=== PATIENT | male | born 1965 | race Caucasian/White ===

== ENCOUNTER → 2024-01-11 15:41 | Outpatient (REF) | payer BC, SELFPAY | LOC: MRI 3T 15:41 | PROVIDERS: ATTENDING PHYSICIAN Surgery; FAMILY PHYSICIAN Nurse Practitioner | DX: R97.20 Elevated prostate specific antigen [PSA] (principal) | CPT/HCPCS: 72197; A9575 ==

== ENCOUNTER → 2024-09-20 10:50 | Outpatient (REF) | payer BC, SELFPAY ==
[2024-09-20 13:07] LABS: PSA, Total - Diagnostic < 0.06 ng/ml (0.0-4.0)
== END ==
LOC: REG 10:50
PROVIDERS: ATTENDING PHYSICIAN Surgery; FAMILY PHYSICIAN Nurse Practitioner
DX: C61 Malignant neoplasm of prostate (principal)
CPT/HCPCS: 36415; 84153

== ENCOUNTER → 2024-10-17 10:06 | Outpatient (REF) | payer BC, SELFPAY ==
[2024-10-17 11:04] LABS: % Basophils 0.3 % (0-2); % Eosinophils 0.9 % (0-6); % Immature Granulocytes 0.2 % (0-0.5); % Lymphocytes 37.5 % (20.5-51.1); % Monocytes 7.7 % (1.7-9.3); % Neutrophils 53.4 % (42.2-75.2); Absolute Eosinophils 0.1 10^3/uL (0-0.7); Absolute Lymphocytes 2.2 10^3/uL (1.2-3.4); Absolute Monocytes 0.4 10^3/uL (0.1-0.6); Absolute Neutrophils 3.1 10^3/uL (1.4-6.5); Hematocrit 46.5 % (39.0-52.0); Hemoglobin 16.4 g/dL (13.0-18.0); Mean Corp Hgb Conc. 35.3 g/dL (33.0-37.0); Mean Corpuscular Hgb 31.5 pg (27.0-31.0); Mean Corpuscular Volume 89.4 fL (80.0-94.0); Mean Platelet Volume 10.5 fL (7.4-10.4); Nucleated Red Blood Cells % 0 % (-); Platelet Count 212 10^3/uL (130-400); Red Cell Dist. Width 12.4 % (11.5-14.5); White Blood Cell Count 5.7 10^3/uL (4.8-10.8)
[2024-10-17 12:03] LABS: Blood Urea Nitrogen 23 mg/dl (9-20); Calcium 9.4 mg/dl (8.4-10.2); Carbon Dioxide 26 mmol/L (22-30); Chloride 111 mmol/L (98-107); Glucose 106 mg/dl (70-99); Potassium 4.2 mmol/L (3.5-5.1); Sodium 143 mmol/L (135-145); eGFR > 60.00
== END ==
LOC: REG 10:06
PROVIDERS: ATTENDING PHYSICIAN Specialist; FAMILY PHYSICIAN Nurse Practitioner
DX: Z01.818 Encounter for other preprocedural examination (principal)
CPT/HCPCS: 80048; 85025; 93005

== ENCOUNTER 2024-10-21 15:09 | Outpatient (RCR) | payer BC, SELFPAY | END 2024-10-21 23:59 | disposition home or self-care (01) | LOC: RPT 15:09 | PROVIDERS: ATTENDING PHYSICIAN Surgery; FAMILY PHYSICIAN Nurse Practitioner | DX: N39.3 Stress incontinence (female) (male) (principal); Z73.6 Limitation of activities due to disability; C61 Malignant neoplasm of prostate; Z98.890 Other specified postprocedural states; Z90.79 Acquired absence of other genital organ(s) | CPT/HCPCS: 97110; 97112; 97161; 97530 ==

== ENCOUNTER → 2024-12-17 14:42 | Outpatient (REF) | payer BC, SELFPAY | LOC: RAD 14:42 | PROVIDERS: ATTENDING PHYSICIAN Specialist; FAMILY PHYSICIAN Nurse Practitioner | DX: Z96.652 Presence of left artificial knee joint (principal); M79.662 Pain in left lower leg | CPT/HCPCS: 93971 ==

== ENCOUNTER → 2024-12-19 07:30 | Outpatient (REF) | payer BC, SELFPAY ==
[2024-12-19 09:05] LABS: PSA, Total - Diagnostic < 0.06 ng/ml (0.0-4.0)
== END ==
LOC: REG 07:30
PROVIDERS: ATTENDING PHYSICIAN Surgery
DX: C61 Malignant neoplasm of prostate (principal)
CPT/HCPCS: 36415; 84153

== ENCOUNTER → 2024-12-31 12:19 | Outpatient (REF) | payer BC, SELFPAY ==
[2024-12-31 13:00] LABS: Hematocrit 47.7 % (39.0-52.0); Hemoglobin 16.1 g/dL (13.0-18.0); Mean Corp Hgb Conc. 33.8 g/dL (33.0-37.0); Mean Corpuscular Volume 91.7 fL (80.0-94.0); Nucleated Red Blood Cells % 0 % (-); Platelet Count 229 10^3/uL (130-400); Red Cell Dist. Width 12.4 % (11.5-14.5)
[2024-12-31 14:08] LABS: C-Reactive Protein < 5.00 mg/L (0.0-10.00)
== END ==
LOC: REG 12:19
PROVIDERS: ATTENDING PHYSICIAN Specialist; FAMILY PHYSICIAN Nurse Practitioner
DX: M25.661 Stiffness of right knee, not elsewhere classified (principal)
CPT/HCPCS: 36415; 85025; 85652; 86140

== ENCOUNTER → 2025-01-07 07:51 | Outpatient (REF) | payer BC, SELFPAY | LOC: RAD 07:51 | PROVIDERS: ATTENDING PHYSICIAN Specialist; FAMILY PHYSICIAN Nurse Practitioner | DX: Z96.652 Presence of left artificial knee joint (principal); M79.662 Pain in left lower leg | CPT/HCPCS: 93971 ==

== ENCOUNTER 2025-01-12 06:51 | Day surgery (SDC) | payer BC, SELFPAY ==
[2025-01-12] MEDS: CELEBREX 200 MG PO (10:38)
[2025-01-12] MEDS: TYLENOL 1000 MG PO (10:38)
[2025-01-12 10:40] VITALS: BMI 28.6
[2025-01-12 10:41] VITALS: BMI 28.6
[2025-01-12 10:42] VITALS: BP 110/71
[2025-01-12] MEDS: NORMOSOL-R/PLASMALYTE-A 1000 IV (11:14)
[2025-01-12 12:21] VITALS: BP 110/71; BP 112/77
[2025-01-12 12:30] VITALS: BP 111/81
[2025-01-12 12:45] VITALS: BP 111/83
[2025-01-12 12:55] VITALS: BP 113/90
[2025-01-12 13:10] VITALS: BP 115/81
== END 2025-01-12 13:27 | disposition home or self-care (01) ==
LOC: SDS 06:51
PROVIDERS: ATTENDING PHYSICIAN Specialist
DX: M25.662 Stiffness of left knee, not elsewhere classified (principal); M17.10 Unilateral primary osteoarthritis, unspecified knee; M79.662 Pain in left lower leg; Z96.652 Presence of left artificial knee joint
CPT/HCPCS: 27570

== ENCOUNTER → 2025-04-01 15:25 | Outpatient (REF) | payer BC, SELFPAY ==
[2025-04-01 17:31] LABS: PSA, Total - Diagnostic < 0.06 ng/ml (0.0-4.0)
== END ==
LOC: REG 15:25
PROVIDERS: ATTENDING PHYSICIAN Surgery; FAMILY PHYSICIAN Nurse Practitioner
DX: C61 Malignant neoplasm of prostate (principal)
CPT/HCPCS: 36415; 84153